=== PATIENT | male | born 1960 | race Two or more races ===

== ENCOUNTER 2022-12-06 23:48 | Emergency (ER) | payer OTHER ==
[~2022-12-06] VITALS: Ht 182.9 cm; Wt 99.8 kg
[2022-12-07] MEDS ORDERED: ZESTORETIC 10-1 EACH (00:12)
[2022-12-07] MEDS ORDERED: ANTIVERT25 M2 PO (00:12)
[2022-12-07] MEDS ORDERED: KETO10TA2 PO (03:44)
== END 2022-12-07 03:54 | disposition home or self-care (01) ==
LOC: ER 23:48
DX: S60.212A Contusion of left wrist, initial encounter (principal); W01.0XXA Fall on same level from slipping, tripping and stumbling without subsequent striking against object, initial encounter; Y93.89 Activity, other specified; Y92.59 Other trade areas as the place of occurrence of the external cause; Y99.9 Unspecified external cause status; I10 Essential (primary) hypertension; R42 Dizziness and giddiness; Z91.013 Allergy to seafood